=== PATIENT | male | born 1955 | race Caucasian/White ===

== ENCOUNTER 2020-03-30 12:37 | Outpatient (RCR) | payer BC, OTHER | END 2020-06-28 | disposition home or self-care (01) | LOC: ONC 12:37 | PROVIDERS: ATTEND Radiology Radiation Oncology | DX: C61 Malignant neoplasm of prostate (principal); E11.9 Type 2 diabetes mellitus without complications; E78.00 Pure hypercholesterolemia, unspecified; I10 Essential (primary) hypertension; Z79.899 Other long term (current) drug therapy; Z79.84 Long term (current) use of oral hypoglycemic drugs | CPT/HCPCS: 99204 ==